=== PATIENT | female | born 1965 | race Caucasian/White ===

== ENCOUNTER 2016-12-07 06:28 | Day surgery (SDC) | payer BC ==
[2016-12-07] MEDS ORDERED: Lidocaine 1% with EPINEPHrine 1:100,000 50 ML MDV ONE (06:41)
[2016-12-07] MEDS ORDERED: Sodium Tetradecyl Sulfate 1% 20 MG/2 ML SDV ONE (06:41)
[2016-12-07] MEDS ORDERED: Sodium Chloride 0.9% 10 ML ONE (06:41)
[2016-12-07] MEDS ORDERED: Sodium Chloride 0.9% 1,000 ML IV SCH (07:00)
[2016-12-07] MEDS ORDERED: Propofol 200 MG/20 ML SDV ONE ×2 (07:16→07:48)
[2016-12-07] MEDS ORDERED: Midazolam 1 MG/ML 2 ML SDV ONE (07:16)
[2016-12-07] MEDS ORDERED: fentaNYL 100 MCG/2 ML SDV ONE (07:16)
[2016-12-07] MEDS: Lidocaine 1% w/EPINEPHrine 50 ML, Sodium Bicarbonate 5 MEQ in Sodium Chloride 0.9% 950 ML INJECT SCH ×2 (07:23→07:24)
[2016-12-07] MEDS ORDERED: Sodium Chloride 0.9% 10 ML SDV ONE (08:10)
[2016-12-07 09:54] VITALS: BP 102/71
--- NOTE | 2016-12-08 08:14 | OR ---
DATE OF PROCEDURE: 12/07/2016 PROCEDURES: 1. Radiofrequency ablation of right lesser saphenous vein. 2. Radiofrequency ablation of right greater saphenous vein. 3. Radiofrequency ablation of left greater saphenous vein. 4. Sclerotherapy left leg, multiple. 5. Sclerotherapy right leg, multiple. 6. Compression wrapping (33112), bilaterally. COMPLICATIONS: None. [employer]: None. ANESTHESIA: MAC/local. INDICATIONS: A pleasant 51-year-old female with venous reflux. Risks, benefits, alternatives, limitations including but not limited to infection, bleeding, and DVT formation were explained to the patient. They wished to proceed. PREOPERATIVE DIAGNOSIS: Venous/varicose vein insufficiency with inflammation and pain. POSTOPERATIVE DIAGNOSIS: Venous/varicose vein insufficiency with inflammation and pain. PROCEDURE IN DETAIL: The patient was placed in supine position. The right LSV was addressed first. This was accessed using a 21-gauge needle exchanged for a 35,000th wire, then exchanged for a 7-Yemeni sheath. The probe was advanced to greater than 3 cm from the deep junction. Tumescent fluid was injected in 1 cm jacket around this and verified a second and third time. Direct even pressure was held as the RFA probe was deployed x2 proximally, distally, and x1 in all other segments. Sheath and device were then removed. Direct pressure was held for 10 minutes and Dermabond was applied. The right greater saphenous and left greater saphenous veins were then performed in the same manner, same fashion, same technique in the same sequence using the same equipment. Sclerotherapy was then performed on left and right legs using 0.33% sodium tetradecyl. This was always drawn back to ensure intravascular injection only. No more than 2 mL was injected in one location, 6 on the right, 9 on the left. CoFlex to two-layer compression wrapping systems were then applied to the left and right legs. The patient tolerated the procedure well. Scott Jesus MD /[id number]
== END 2016-12-07 10:08 | disposition home or self-care (01) ==
LOC: JP.SDS 06:28
PROVIDERS: ATTEND Surgery
DX: I87.2 Venous insufficiency (chronic) (peripheral) (principal); I83.11 Varicose veins of right lower extremity with inflammation; I83.12 Varicose veins of left lower extremity with inflammation; I83.813 Varicose veins of bilateral lower extremities with pain; Z88.0 Allergy status to penicillin; F17.210 Nicotine dependence, cigarettes, uncomplicated; Z90.49 Acquired absence of other specified parts of digestive tract; Z98.890 Other specified postprocedural states
CPT/HCPCS: 29581; 36471; 36475; 36476; J1642; J2250; J2704; J3010; J7040; J7050; J3490